=== PATIENT | female | born 2000 | race Caucasian/White ===

== ENCOUNTER 2024-10-15 00:46 | Emergency (ER) | payer MEDICAID ==
[~2024-10-15] VITALS: Ht 157.5 cm; Wt 60.7 kg
[2024-10-15 01:34] VITALS: BP 132/79; PULSE 67; RESP 14; TEMP 98.6; O2SAT 100
[2024-10-15] MEDS ORDERED: ACETAMINOPHEN 500MG TABLET PO ONE (03:30)
[2024-10-15] MEDS ORDERED: GUAI600T26 MT (03:39)
[2024-10-15] MEDS ORDERED: ACET-2708 MT (03:39)
== END 2024-10-15 02:36 | disposition home or self-care (01) ==
LOC: ER 00:46
DX: B34.9 Viral infection, unspecified (principal)
CPT/HCPCS: 71045; 99283